=== PATIENT | male | born 1955 ===

== ENCOUNTER 2019-11-25 13:52 | Outpatient (REF) | payer SELFPAY ==
[2019-11-25 15:30] LABS: Blood Donor Cholesterol 197
== END 2019-11-25 13:53 | disposition home or self-care (01) ==
LOC: HO.LNC 13:52
PROVIDERS: Visit Provider Pathology Anatomic Pathology & Clinical Pathology
DX: Z76.89 Persons encountering health services in other specified circumstances (principal)
CPT/HCPCS: 82465

== ENCOUNTER 2020-01-20 15:28 | Outpatient (REF) | payer SELFPAY ==
[2020-01-20 16:05] LABS: Cholesterol 212 mg/dL
[2020-01-20 16:22] LABS: SARS COV2 IgG Negative (Negative)
== END 2020-01-20 15:29 | disposition home or self-care (01) ==
LOC: HO.LNC 15:28
PROVIDERS: Visit Provider Pathology Anatomic Pathology & Clinical Pathology
DX: Z20.828 Contact with and (suspected) exposure to other viral communicable diseases (principal)
CPT/HCPCS: 82465; 86769

== ENCOUNTER 2020-03-18 16:27 | Outpatient (REF) | payer SELFPAY ==
[2020-03-18 17:02] LABS: Cholesterol 196 mg/dL
== END 2020-03-18 16:28 | disposition home or self-care (01) ==
LOC: HO.LNC 16:27
PROVIDERS: Visit Provider Pathology Anatomic Pathology & Clinical Pathology
DX: Z13.89 Encounter for screening for other disorder (principal)
CPT/HCPCS: 36415; 82465